=== PATIENT | female | born 1955 | race Caucasian/White ===

== ENCOUNTER 2017-08-02 09:25 | Emergency (ER) | payer OTHER ==
--- NOTE | 2017-08-02 09:38 | ERNOTE ---
Lower Extremity HPI - Narrative Date of Service: 08/02/17 - General Time Seen by Provider: 08/02/17 09:45 Source: patient Exam Limitations: no limitations - Immun/Allergies/Home Medications Allergies/Adverse Reactions: Allergies Allergy/AdvReac Type Severity Reaction Status Date / Time No Known Allergies Allergy Unverified 08/02/17 09:36 - History of Present Illness Narrative: Patient was climbing a fence trying to get away from a cow that was protecting her calf when the cow pushed her over the fence landing in naeem wire. Patient denies any head injury or loss of consciousness. She walked home and took a shower and is mainly here for a laceration on her left lower leg. Date (Duration): 08/02/17 Time (Timing): 08:00 Occurred: this morning Location of Incident: home Method of Injury: Reports: fell Reason for Fall: Reports: other Loss of Consciousness: Reports: no loss of consciousness Associated Symptoms: Denies: unable to bear weight, snapping, headache Other Injuries: Reports: other - hands Subsequent Symptoms: Denies: sensory loss, numbness Prior Treament: Denies: recently seen Review of Systems - Review of Systems Constitutional: Absent: recent illness, fever ENT: Absent: nose congestion, sore throat Respiratory: Absent: shortness of breath Cardiology: Absent: chest pain Gastrointestinal/Abdominal: Absent: nausea, vomiting, abdominal pain Genitourinary: Present: no symptoms reported Musculoskeletal: Present: See HPI Skin: Present: See HPI Neurological: Absent: weakness, numbness - Patient's Past Medical History Patient History - Medical: Diabetes Type 2 - off meds since loosing weight Patient History - Cardiac/Respiratory: Hypertension Patient History - Cancer: No Hx of Cancer Patient History - Surgical Procedures: Hysterectomy, T & A - Family History Mother Family History - Medical: No pertinent hx Father Family History - Medical: No pertinent hx - Social History Living Situations: home - Immunizations Immunizations Up to Date: No Physical Exam - Physical Exam General Appearance: Present: wd/wn, no apparent distress Head Exam: Present: normal inspection, no evidence of injury Eye Exam: Normal inspection: bilateral, PERRL: bilateral Ears, Nose, Throat: Present: normal ENT inspection Neck: Present: normal inspection, nontender, full range of motion Respiratory: Present: no respiratory distress, normal breath sounds, no accessory muscle use, chest nontender, lungs clear Cardiovascular/Chest: Present: regular rate, rhythm, no murmur Gastrointestinal/Abdominal: Present: nontender, nondistended, soft Back Exam: Present: normal inspection, normal range of motion, no CVA tenderness , no vertebral tenderness Extremity Exam: Present: normal except - - left hand tenderness and contusion over 5th metacarpal, right hand: echymosis and swelling with small puncture wound over thenar, no bony tenderness, multiple abrasion on both legs, contusion over right anterior proximal lower leg, left lower leg 1x1cm flap laceration distal to patellar Neurological Exam: Present: alert, oriented, normal mood/affect, no motor/ sensory deficits Skin Exam: Present: normal color, warm/dry ED Progress - Vital Signs Patient's Vital Signs:: I have reviewed the patient's vital signs. Vital Signs: Vital Signs 08/02/17 09:30 Temperature 36.8 C Pulse Rate 125 H Respiratory 18 Rate Blood Pressure 138/97 O2 Sat by Pulse 97 Oximetry - Progress/Reassessment Chief Complaint: Lower Extremity Pain/ Injury Procedures Left Tibia Anesthesia: 1% Lidocaine, Local Length of Repair/Wound (cm): 2 - 1x1 Wound's Depth/Shape: flap Wound Explored: clean, no foreign body Wound Intervention: irrigated w/saline Suture Size/Type: 3-0 Number of Sutures: 2 Layer Closure: Simple Complications: Pt josé procedure well Departure Clinical Impression: Contusion of hand Qualifiers: Encounter type: initial encounter Laterality: unspecified laterality Qualified Code(s): S60.229A - Contusion of unspecified hand, initial encounter Leg laceration Qualifiers: Encounter type: initial encounter Laterality: left Qualified Code(s): S81.812A - Laceration without foreign body, left lower leg, initial encounter Puncture wound of hand, right Qualifiers: Encounter type: initial encounter Foreign body presence: without foreign body Qualified Code(s): S61.431A - Puncture wound without foreign body of right hand , initial encounter - Departure Disposition: Home self-care Condition: Good Instructions: Puncture Wound, [id number], Contusion, [id number], Laceration Care, Adult, [id number] Additional Instructions: have the sutures removed in 12 days, watch closely for signs of infection especially the puncture wound on the right hand Referrals: Gage Rahman, [Primary Care Provider] -
[2017-08-02] MEDS ORDERED: DIPHTH,PERTUSS(ACELL),TET VAC 0.5 ML VIAL IM ONE ×2 (09:44→10:20)
[2017-08-02 10:01] VITALS: BP 134/78
== END 2017-08-02 11:16 | disposition home or self-care (01) ==
LOC: ER 09:25
PROC: 0JQP0ZZ Repair Left Lower Leg Subcutaneous Tissue and Fascia, Open Approach (ICD-10-PCS; principal; 2017-08-02)
DX: S81.812A Laceration without foreign body, left lower leg, initial encounter (principal); S60.222A Contusion of left hand, initial encounter; S61.431A Puncture wound without foreign body of right hand, initial encounter; Y30.XXXA Falling, jumping or pushed from a high place, undetermined intent, initial encounter; W55.22XA Struck by cow, initial encounter; Y93.02 Activity, running; Y92.007 Garden or yard of unspecified non-institutional (private) residence as the place of occurrence of the external cause

== ENCOUNTER 2017-10-13 16:23 | Emergency (ER) | payer OTHER ==
[2017-10-13] MEDS ORDERED: KETOROLAC TROMETHAMINE 60 MG/2 ML VIAL IM ONE ×2 (16:43→16:50)
[2017-10-13 17:08] LABS: Hematocrit 37.5 % (37.0-47.0); Hemoglobin 12.9 gm/dL (12.5-16.0); Mean Corpuscular Hemoglobin 29.9 pg (27-31); Mean Corpuscular Hgb Conc 34.4 g/dl (32-36); Neutrophil # 5.5 K/mm3 (1.3-6.0); Neutrophil % 51.1 % (42-75.0); Platelet Count 274 K/mm3 (150-450); Red Blood Count 4.31 M/mm3 (4.2-5.4); White Blood Count 10.7 K/mm3 (4.0-10.5)
[2017-10-13 17:31] VITALS: BP 145/85
[2017-10-13 17:33] LABS: ALT 15 U/L (19-67); AST 14 U/L (0-48); Albumin * 3.7 gm/dl (3.4-5.0); Alkaline Phosphatase * 58 U/L (50-170); Anion Gap 14.1 mmol/L (6.8-13.8); BUN/Creatinine Ratio 22.6 (9.0-21.6); Bilirubin, Total 0.2 mg/dL (0.0-1.1); Blood Urea Nitrogen 19 mg/dL (3-23); Ca. Corrected For Albumin 9.1 mg/dL (8.4-10.2); Calcium * 9.2 mg/dL (7.9-10.9); Carbon Dioxide 27.3 mmol/L (24-32.6); Chloride 102 mmol/L (97-106); Glucose * 125 mg/dL (70-110); Magnesium 1.9 mg/dL (1.2-2.8); Potassium 3.4 mmol/L (3.4-4.6); Sodium 140 mmol/L (132-142); Troponin I Less than 0.017 ng/ml (0.00-0.10)
[2017-10-13] MEDS ORDERED: MECLIZINE HCL 25 MG TABLET PO ONE (17:49)
[2017-10-13] MEDS ORDERED: MECLIZINE HCL 25 MG TABLET ONE (17:50)
--- NOTE | 2017-10-13 17:50 | ERNOTE ---
Chest Pain/Cardiac HPI Chief Complaint: Chest Pain Time Seen by Provider: 10/13/17 16:31 Source: patient, family Exam Limitations: no limitations Immunizations: IMMUNIZATION HX Immunizations Up to Date No History of Influenza Vaccine No Hx Pneumococcal Vaccination No Allergies/Adverse Reactions: Allergies No Known Allergies Allergy (Unverified 08/02/17 09:36) Home Medications: HOME MEDICATIONS Meclizine HCl [Antivert] 25 mg PO TID PRN #20 tablet 10/13/17 [Last Taken Unknown] Naproxen [Naprosyn] 500 mg PO BID #60 tablet 10/13/17 [Last Taken Unknown] Narrative: Patient was moving rocks swelling approximately 5 pounds today in her yard and developed some left anterior chest pain. Pain is increased with palpation and trunk motion. Patient denies any diaphoresis or short of breath and she does not have any neck or jaw pain either. Timing: constant Severity/Quality: moderate Location: left chest Chest Pain Radiation: no radiation Activities at Onset: activity Modifying Factors - Improves: Present: nothing Modifying Factors - Worsens: Present: coughing, movement Associated Symptoms: Present: denies symptoms Prior Chest Pain/Cardiac Workup: Reports: prior chest pain Review of Systems - Review of Systems Constitutional: Present: See HPI EYE: Present: no symptoms reported ENT: Present: no symptoms reported Respiratory: Present: no symptoms reported Cardiology: Present: chest pain Gastrointestinal/Abdominal: Present: no symptoms reported Genitourinary: Present: no symptoms reported Musculoskeletal: Present: no symptoms reported Skin: Present: no symptoms reported Neurological: Present: no symptoms reported Endocrine: Present: no symptoms reported Hematologic/Lymphatic: Present: no symptoms reported Psych: Present: no symptoms reported - Patient's Past Medical History Patient History - Medical: Diabetes Type 2 Patient History - Cardiac/Respiratory: Hypertension Patient History - Cancer: No Hx of Cancer Patient History - Surgical Procedures: Hysterectomy, T & A Patient History - Other: None LMP (females 10-50): Menopausal - Family History Mother Family History - Medical: No pertinent hx Father Family History - Medical: No pertinent hx - Social History Living Situations: home Abuse History: No History of abuse Psych History: No pertinent hx Smoking Status: Never smoker Have you smoked in the past 12 months: No Do you dip or chew tobacco: No Alcohol Use: sober Drug Use: none - Immunizations Immunizations Up to Date: No Hx Pneumococcal Vaccination: No History of Influenza Vaccine: No Physical Exam - Physical Exam General Appearance: Present: wd/wn, alert, moderate distress Eye Exam: Normal inspection: bilateral, PERRL: bilateral Ears, Nose, Throat: Present: normal ENT inspection, H, normal pharynx Neck: Present: normal inspection, nontender Respiratory: Present: no respiratory distress, normal breath sounds, no accessory muscle use, lungs clear, chest tenderness - chest pain is reproducible with palpation Cardiovascular/Chest: Present: regular rate, rhythm, no murmur, normal peripheral pulses Gastrointestinal/Abdominal: Present: normal bowel sounds, nontender, nondistended, soft, no organomegaly Rectal Exam: Present: deferred Back Exam: Present: normal inspection, normal range of motion Extremity Exam: Present: normal inspection, non-tender, no edema, normal range of motion Neurological Exam: Present: alert, oriented, normal mood/affect Skin Exam: Present: normal color, warm/dry Lymphatic Exam: Present: no adenopathy ED Progress - Results and Orders Patient's Lab Results:: I have reviewed the patient's lab results. - Vital Signs Patient's Vital Signs:: I have reviewed the patient's vital signs. Vital Signs: Vital Signs 10/13/17 10/13/17 10/13/17 16:35 16:39 17:30 Temperature 37.1 C Pulse Rate 87 93 70 Respiratory 16 13 17 Rate Blood Pressure 179/101 171/104 145/85 O2 Sat by Pulse 99 99 99 Oximetry - EKG EKG: NSR - X-Ray X-Ray #1 X-Ray: chest Interpretation: Interp. by me - Progress/Reassessment Chief Complaint: Chest Pain Plan - Plan Plan: Patient has reproducible chest pain with an unremarkable EKG and a negative chest x-ray. I believe this is chest wall pain and we will have her follow-up with her family physician this week. Patient developed some vertigo after receiving the Toradol, however a HINTS exam was all negative and I believe this is possibly medication-induced vertigo. Departure Clinical Impression: Chest wall pain - Departure Disposition: Home self-care Condition: Good Instructions: Chest Wall Pain, [id number], Vertigo, [id number] Referrals: Gage Rahman DO [Primary Care Provider] - Prescriptions: Meclizine HCl [Antivert] 25 mg PO TID PRN #20 tablet PRN Reason: Vertigo Naproxen [Naprosyn] 500 mg PO BID #60 tablet
== END 2017-10-13 17:55 | disposition home or self-care (01) ==
LOC: ER 16:23
DX: R07.89 Other chest pain (principal)